=== PATIENT | female | born 1940 | race Caucasian/White ===

== ENCOUNTER → 2016-06-04 | Outpatient (CLI) | payer OTHER ==
[~2016-06-04] MED LIST: EZET10TA47 PO; METO100T14 PO; PERFLUTREN LIPID MICROSPHERE (DEFINITY) IV ONE; ZNF/4 PO
--- NOTE | 2016-06-05 08:32 | ECHOCARDIOGRAM REPORT ---
*NOTICE TO RECEIVING [employer] This information is strictly Confidential and protected under [place] law. [place] law prohibits you from making any further disclosure of this information unless further disclosure is expressly permitted by the written consent of the person to whom it pertains or is authorized by law. A general authorization for the release of medical or other information is not sufficient for this purpose. Hospital accepts no responsibility if the information is made available to any other person, INCLUDING THE PATIENT. Interpretation Summary * Name: MARTIN GUERRA Study Date: 06/04/2016 01:40 PM BP: 140/81 mmHg * Patient Location: [facility] HR: 63 * : 1940 (M/d/yyyy) Gender: Female Height: 63 in * Age: 75 yrs Ethnicity: [place] Weight: 170 lb * Ordering Physician: Cali Og * Referring Physician: Cali Og * Performed By: Es Monaco RDCS * Account# VHD\S\Valvular Heart Disease\S\Diagosis for TTE * Reason For Study: Valvular Heart Disease * BSA: 1.8 m2 * -- Conclusions -- * 1. Normal left ventricular size with normal systolic function. EF 55-60%. No regional wall motion abnormalities. Mild left ventricular hypertrophy. Type 1 diastolic dysfunction. * 2. Sclerotic aortic valve without significant stenosis. * 3. Mild aortic regurgitation. * 4. Mild mitral regurgitation. * 5. Normal estimated right ventricular systolic pressure; 25 mmHg. * 6. Technically difficult study, enhanced with IV Definity. * 7. Compared to prior study on 02/07/2014, LV systolic function appears less hyperdynamic. Procedure Details * A complete two-dimensional transthoracic echocardiogram was performed (2D, M-mode, Doppler and color flow Doppler). * The study was technically difficult. * The study was technically difficult, but visualization was adequate with the administration of Definity ultrasound contrast. * A contrast injection of Definity was performed to improve assessment of LV function. * Contrast was injected into an intravenous site in the right arm. * One vial of Definity ultrasound contrast was diluted in normal saline to a total volume of 10 ml. A total of '2' ml of solution was administered during imaging. * Lot # [id number] of Definity utilized for procedure. * Expiration date . * The attending nurse who injected the contrast agent was Merry Garnett RN. Left Ventricle * Normal left ventricular size with normal systolic function. EF 55-60%. No regional wall motion abnormalities. Mild left ventricular hypertrophy. Type 1 diastolic dysfunction. Right Ventricle * The right ventricle is normal in size and function. * The right ventricular systolic function is normal as assessed by tricuspid annular plane systolic excursion (TAPSE) (normal >1.5 cm). Atria * The left atrial size is normal. * Right atrial size is normal. * There is no evidence of atrial septal defect, but resolution does not allow assessment for a patent foramen ovale. Mitral Valve * The mitral valve is grossly normal. * There is no mitral valve stenosis. * There is mild mitral regurgitation. Tricuspid Valve * The tricuspid valve is not well visualized, but is grossly normal. * There is no tricuspid stenosis. * There is mild tricuspid regurgitation. Aortic Valve * Sclerotic aortic valve without significant stenosis. * Mild aortic regurgitation. Pulmonic Valve * The pulmonary valve is inadequately visualized, but the Doppler data is adequate for interpretation. * There is no pulmonic valvular stenosis. * Mild pulmonic valvular regurgitation. Great Vessels * The aortic root is normal size. Pericardium/Pleural * There is no pericardial effusion. Great Vessels * Normal inferior vena cava size and collapsability with sniff indicates a normal right atrial pressure of 3 mmHg Left Ventricular Diastolic Function * Grade I diastolic dysfunction, (abnormal relaxation pattern). MMode 2D Measurements and Calculations IVSd 1.2 cm IVSs 1.4 cm LVIDd 3.7 cm LVIDs 2.6 cm LVPWd 1.1 cm LVPWs 1.7 cm IVS/LVPW 1.0 FS 28.4 % EDV(Teich) 58.1 ml ESV(Teich) 25.8 ml EF(Teich) 55.6 % EDV(cubed) 50.6 ml ESV(cubed) 18.6 ml EF(cubed) 63.3 % % IVS thick 23.2 % % LVPW thick 49.0 % LV mass(C)d 135.4 grams LV mass(C)dI 75.0 grams/m\S\2 LV mass(C)s 141.7 grams LV mass(C)sI 78.5 grams/m\S\2 SV(Teich) 32.3 ml SI(Teich) 17.9 ml/m\S\2 SV(cubed) 32.0 ml SI(cubed) 17.7 ml/m\S\2 Ao root diam 3.1 cm Ao root area 7.4 cm\S\2 ACS 1.3 cm LA dimension 3.4 cm asc Aorta Diam 3.5 cm LA/Ao 1.1 LVOT diam 2.2 cm LVOT area 3.7 cm\S\2 LVAd ap4 27.5 cm\S\2 LVLd ap4 7.6 cm EDV(MOD-sp4) 81.0 ml EDV(sp4-el) 85.1 ml LVAs ap4 16.1 cm\S\2 LVLs ap4 6.3 cm ESV(MOD-sp4) 35.3 ml ESV(sp4-el) 34.9 ml EF(MOD-sp4) 56.4 % EF(sp4-el) 59.0 % LVAd ap2 24.5 cm\S\2 LVLd ap2 7.3 cm EDV(MOD-sp2) 69.1 ml EDV(sp2-el) 69.7 ml LVAs ap2 14.4 cm\S\2 LVLs ap2 6.3 cm ESV(MOD-sp2) 29.9 ml ESV(sp2-el) 28.2 ml EF(MOD-sp2) 56.8 % EF(sp2-el) 59.5 % LVLd %diff -3.57 % EDV(MOD-bp) 75.8 ml LVLs %diff -1.28 % ESV(MOD-bp) 32.4 ml EF(MOD-bp) 57.2 % SV(MOD-sp4) 45.7 ml SI(MOD-sp4) 25.3 ml/m\S\2 SV(MOD-sp2) 39.2 ml SI(MOD-sp2) 21.7 ml/m\S\2 SV(MOD-bp) 43.4 ml SI(MOD-bp) 24.0 ml/m\S\2 SV(sp4-el) 50.1 ml SI(sp4-el) 27.8 ml/m\S\2 SV(sp2-el) 41.5 ml SI(sp2-el) 23.0 ml/m\S\2 Doppler Measurements and Calculations MV E max josef 66.5 cm/sec MV A max josef 92.6 cm/sec MV E/A 0.72 MV dec time 0.23 sec Ao V2 max 128.1 cm/sec Ao max PG 6.6 mmHg Ao max PG (full) 3.0 mmHg KEN(V,A) 2.7 cm\S\2 KEN(V,D) 2.7 cm\S\2 AI max josef 400.6 cm/sec AI max PG 65.8 mmHg AI dec slope 236.7 cm/sec\S\2 AI P1/2t 495.8 msec LV V1 max PG 3.6 mmHg LV V1 max 94.6 cm/sec PA V2 max 78.7 cm/sec PA max PG 2.5 mmHg PI max josef 120.5 cm/sec PI max PG 6.0 mmHg PI dec slope 88.9 cm/sec\S\2 PI P1/2t 397.0 msec TR max josef 233.2 cm/sec RVSP(TR) 24.8 mmHg RAP systole 3.0 mmHg
== END | disposition home or self-care (01) ==
LOC: C.CPL 12:37
DX: I36.1 Nonrheumatic tricuspid (valve) insufficiency (principal); I35.1 Nonrheumatic aortic (valve) insufficiency

== ENCOUNTER → 2017-01-07 | Outpatient (CLI) | payer OTHER ==
[~2017-01-07] MED LIST changes: -PERFLUTREN LIPID MICROSPHERE (DEFINITY) IV ONE
[2017-01-07 12:55] LABS: BLOOD UREA NITROGEN 27 mg/dl (7-18); BUN/CREATININE RATIO 20.9 (10-20); CALCIUM 9.8 mg/dl (8.5-10.1); CARBON DIOXIDE 26 mmol/L (21-32); CHLORIDE 110 mmol/L (98-107); GLUCOSE 94 mg/dl (70-99); POTASSIUM 4.4 mmol/L (3.5-5.1); SODIUM 141 mmol/L (136-145)
== END | disposition home or self-care (01) ==
LOC: C.LABPVFM 08:21
DX: E78.00 Pure hypercholesterolemia, unspecified (principal)

== ENCOUNTER → 2017-06-08 | Outpatient (CLI) | payer OTHER ==
[2017-06-08 12:55] LABS: HEMATOCRIT 40.2 % (37-47); HEMOGLOBIN 13.5 g/dL (12.0-16.0); MEAN CELL VOLUME 95.3 fL (80-100); MEAN CORPUSCULAR HGB CONC 33.6 g/dl (32-36); MEAN PLATELET VOLUME 9.7 fL (7.4-10.4); PLATELET COUNT 276 K/uL (130-400); RED CELL DISTRIBUTION WIDTH CV 13.3 % (11.5-14.5); RED CELL DISTRIBUTION WIDTH SD 46.7 fL (36.4-46.3); WHITE BLOOD COUNT 5.61 K/uL (4.8-10.8)
[2017-06-08 13:14] LABS: ALBUMIN 3.8 gm/dl (3.4-5.0); ALT/SGPT 21 U/L (12-78); BLOOD UREA NITROGEN 21 mg/dl (7-18); CALCIUM 9.7 mg/dl (8.5-10.1); CARBON DIOXIDE 25 mmol/L (21-32); CREATININE 1.11 mg/dl (0.60-1.20); GLUCOSE 92 mg/dl (70-99); POTASSIUM 3.7 mmol/L (3.5-5.1); SODIUM 140 mmol/L (136-145); URIC ACID 6.4 mg/dl (2.6-7.2)
[2017-06-08 13:23] LABS: THYROXINE (T4) 6.1 mcg/dl (4.5-10.9)
[2017-06-08 13:25] LABS: ALKALINE PHOSPHATASE 62 U/L (45-117); AST/SGOT 22 U/L (15-37); TOTAL PROTEIN 7.8 gm/dl (6.4-8.2)
== END | disposition home or self-care (01) ==
LOC: C.LABPVFM 08:57
PROVIDERS: ATTEND Physician Assistant
DX: E03.9 Hypothyroidism, unspecified (principal)

== ENCOUNTER → 2017-09-27 | Outpatient (CLI) | payer OTHER ==
[2017-09-27 13:06] LABS: BLOOD UREA NITROGEN 20 mg/dl (7-18); CALCIUM 9.5 mg/dl (8.5-10.1); CARBON DIOXIDE 28 mmol/L (21-32); CREATININE 1.12 mg/dl (0.60-1.20); GLUCOSE 91 mg/dl (70-99); SODIUM 141 mmol/L (136-145)
== END | disposition home or self-care (01) ==
LOC: C.LABPVFM 08:24
PROVIDERS: ATTEND Physician Assistant
DX: N18.2 Chronic kidney disease, stage 2 (mild) (principal)

== ENCOUNTER → 2018-01-07 | Outpatient (CLI) | payer OTHER ==
[2018-01-07 17:55] LABS: ALBUMIN 3.8 gm/dl (3.4-5.0); ALKALINE PHOSPHATASE 64 U/L (45-117); ALT/SGPT 19 U/L (12-78); AST/SGOT 18 U/L (15-37); BLOOD UREA NITROGEN 24 mg/dl (7-18); CALCIUM 9.4 mg/dl (8.5-10.1); CARBON DIOXIDE 25 mmol/L (21-32); CHOLESTEROL 169 mg/dl (0-200); GLUCOSE 88 mg/dl (70-99); LDL CHOLESTEROL CALCULATED 83 mg/dl; POTASSIUM 4.2 mmol/L (3.5-5.1); SODIUM 142 mmol/L (136-145)
== END | disposition home or self-care (01) ==
LOC: C.LABPVFM 14:36
PROVIDERS: ATTEND Family Medicine
DX: E05.90 Thyrotoxicosis, unspecified without thyrotoxic crisis or storm (principal); J03.91 Acute recurrent tonsillitis, unspecified; E78.5 Hyperlipidemia, unspecified